=== PATIENT | female | born 1990 | race Native Hawaiian/Other Pacific Islander ===

== ENCOUNTER 2017-02-25 07:49 | Inpatient (IN) | payer MEDICAID ==
[2017-02-25] MEDS: Lactated Ringer's 1,000 ML IV SCH (19:00)
[2017-02-25 19:01] VITALS: BMI 35.9
--- NOTE | 2017-02-25 19:14 | OBADHP ---
Datetime: 02/25/2017 19:07 Admit Comment, IP Provider: at 39.3weks her for induction of labor for hep B+.no ctxs, vb, lof, =fm obhx primi pmh hep B + MED PNV ALL PCN PSH DE SOCH den ve /-3 a/p at 39weeks her for induction/hep b + plan admit to l_d npo/ivf labs cervidil cont hortencia and efm heptitis panel gbs prophylaxsis anticipate Dr Cruz aware Pelvic Type - PN: Adequate Extremities - PN: Normal Abdomen - PN: Normal Back - PN: Normal Breast - PN: Not Done Lungs - PN: Normal Heart - PN: Normal Thyroid - PN: Not Done Neurologic - PN: Normal HEENT - PN: Normal General - PN: Normal FHR - Baseline A Provider: 140 Contraction Comments Provider: q1-5 Comments, ACOG Physical Exam: gravid,non tender ext no edema,no calf ten IP Hx Assessment: The History has been Reviewed and is Current Vital Signs Provider: Within Normal Limits IP Chief Complaint: Scheduled induction of labor NICHD Variability Prov Fetus A: Moderate 6-25bpm NICHD Accel Fetus A IP Provider: 15X15 FHR Category Provider Fetus A: Category I Dilatation, Provider: 1 Effacement, Provider: 50 Station, Provider: -3 Genitourinary Exam: Normal DTRs - PN: Normal EGA AdmitDate IP: 39.3 IP Adm Impression: Term, intrauterine ; No Active Labor; Intact Membranes IP Admit Plan: Admit to unit; Initiate labor protocol
[2017-02-25] MEDS ORDERED: Nalbuphine 20 mg/ml Inj (1 ml) IVP PRN (19:15)
--- NOTE | 2017-02-25 19:41 | OBPN ---
Datetime: 02/25/2017 19:39 IP Procedures: Sterile Vag Exam IP Progress Plan: Cervical Ripening Contraction Comments Provider: q1-4 FHR - Baseline A Provider: 130 IP Progress Note Comment: pt was examined at bed side ve /-3 cervidil plsaced r/a/b discusssed NICHD Accel Fetus A IP Provider: 15X15 FHR Category Provider Fetus A: Category I NICHD Variability Prov Fetus A: Moderate 6-25bpm Dilatation, Provider: 1 Effacement, Provider: 50 Station, Provider: -3 Datetime: 02/25/2017 19:07 Vital Signs Provider: Within Normal Limits
[2017-02-25 21:41] LABS: BASO % 0.1 % (0.0-2.0); EOS # 0.1 K/uL (0.0-0.7); EOS % 1.1 % (0.0-4.0); HEMATOCRIT 31.5 % (34.0-47.0); LYMPH # 1.8 K/uL (1.0-4.3); LYMPH % 18.3 % (20.0-40.0); MEAN CELL VOLUME 92.1 fL (81.0-99.0); MEAN CORPUSCULAR HEMOGLOBIN 30.5 pg (27.0-31.0); MEAN CORPUSCULAR HGB CONC 33.1 g/dL (33.0-37.0); MEAN PLATELET VOLUME 8.8 fL (7.2-11.7); MONO # 0.7 K/uL (0.0-0.8); MONO % 7.3 % (0.0-10.0); NRBC % 0.1 % (0.0-2.0); WHITE BLOOD COUNT 9.8 K/uL (4.8-10.8)
[2017-02-25 21:50] LABS: CHLORIDE 102 mmol/L (98-107); POTASSIUM 3.6 mmol/L (3.6-5.2); RBC URINE 1 /hpf (0-3); SODIUM 134 mmol/L (132-148); URINE BILIRUBIN NEGATIVE (NEGATIVE); URINE BLOOD NEGATIVE (NEGATIVE); URINE COLOR Yellow (YELLOW); URINE GLUCOSE (UA) 1+ mg/dL (Normal); URINE KETONE NEGATIVE (NEGATIVE); URINE PROTEIN NEGATIVE (NEGATIVE); URINE UROBILINOGEN NORMAL mg/dL (0.2-1.0); WBC URINE 3 /hpf (0-5)
[2017-02-25 21:51] LABS: URINE LEUKOCYTE ESTERASE NEGATIVE Leu/uL (Negative)
[2017-02-25 21:52] LABS: GFR AFRICAN-AMERICAN > 60
[2017-02-25 21:53] LABS: ALB/GLOB RATIO 0.9 (1.0-2.1); ALKALINE PHOSPHATASE 139 U/L (38-126); ALT/SGPT 31 U/L (9-52); AST/SGOT 28 U/L (14-36); BILIRUBIN,DIRECT 0.3 mg/dL (0.0-0.4); BILIRUBIN,TOTAL 0.3 mg/dL (0.2-1.3); BLOOD UREA NITROGEN 10 mg/dL (7-17); CALCIUM 8.8 mg/dl (8.6-10.4); CARBON DIOXIDE 19 mmol/L (22-30); GLUCOSE,RANDOM 126 mg/dL (65-105); TOTAL PROTEIN 6.2 g/dL (6.3-8.3)
[2017-02-26] MEDS ORDERED: Nalbuphine 20 mg/ml Inj (1 ml) ONE (01:40)
[2017-02-26] MEDS: Lactated Ringer's 1,000 ML IV SCH ×2 (03:30→09:00)
--- NOTE | 2017-02-26 08:13 | OBPN ---
Datetime: 02/26/2017 08:09 IP Progress Impression: Normal progression of labor IP Progress Plan: Continue present management Membranes, Provider: Intact FHR - Baseline A Provider: 150 Gestation - Est Wks by US: 39.4 IP Progress Note Comment: pt seen and examined . pt reportrs mild pain from ctx, dnie slof, vb, +FM VSS Cervdil removed A/P IOL hep b -s/p cervidl -cytotete as per pMd plan of care discused with Dr Anthony ACEVES Accel Fetus A IP Provider: 15X15 FHR Category Provider Fetus A: Category I KETAN Variability Prov Fetus A: Moderate 6-25bpm Dilatation, Provider: 3 Effacement, Provider: 60 Station, Provider: -3
--- NOTE | 2017-02-26 13:27 | OBPN ---
Datetime: 02/26/2017 13:21 IP Progress Impression: Normal progression of labor; Reassuring heart rate IP Informed Consent Obtain: Vaginal Delivery IP Progress Plan: Continue present management; Augmentation Membranes, Provider: Intact Contraction Comments Provider: Q 3 FHR - Baseline A Provider: 140 Gestation - Est Wks by US: 39.4 Presentation-Admit: Vertex IP Progress Note Comment: IUP at 39+wks Reassuring Tracing Plan: Augmentation after epidural Vital Signs Provider: Within Normal Limits NICHD Accel Fetus A IP Provider: 15X15 FHR Category Provider Fetus A: Category I NICHD Variability Prov Fetus A: Moderate 6-25bpm Dilatation, Provider: 3 Effacement, Provider: 60 Station, Provider: -3 NICHD Decel Fetus A IP Provider: None (Annotations: Data stored by CPN on behalf of user)
[2017-02-26] MEDS ORDERED: Bupivacaine 0.125%/FentaNYL 200 ML EPI ONE (14:12)
[2017-02-26] MEDS ORDERED: Bupivacaine 0.25% Inj(30mL) ONE (14:13)
[2017-02-26] MEDS ORDERED: Oxytocin 30 UNIT 30 UNITS/500 ML BAG IV SCH (15:00)
[2017-02-26] MEDS ORDERED: Oxytocin 30 UNIT 30 UNITS/500 ML BAG IV ONE (15:39)
[2017-02-27] MEDS ORDERED: Bupivacaine HCl 0.25% PF (10 ml) Inj ONE (03:05)
[2017-02-27] MEDS ORDERED: Sodium Citrate/Citric Acid 15 ml Sol ONE (04:39)
[2017-02-27] MEDS ORDERED: Lidocaine 2% Inj (20ml) ONE (04:40)
[2017-02-27] MEDS ORDERED: Lidocaine 2% MPF (5 ml) Inj ONE ×3 (04:42→06:37)
--- NOTE | 2017-02-27 04:46 | OBPN ---
Datetime: 02/27/2017 04:37 IP Progress Impression: Arrest of dilatation/descent; Reassuring heart rate IP Informed Consent Obtain: Section Delivery IP Procedures: Sterile Vag Exam IP Progress Plan: Deliver- Section Membranes, Provider: Ruptured Amniotic Fluid Color, Provider: Clear FHR - Baseline A Provider: 160 Gestation - Est Wks by US: 39.5 Presentation-Admit: Vertex IP Progress Note Comment: IUP at 39wks in labor No change in cervical dilatation despite adequate contractions for More than 8 hours Arrest of cervical dilatation at 4cm. Plan: Deliver by section. Discussed with patient. Pt agrees with plan. Consent obtained. Vital Signs Provider: Reviewed NICHD Accel Fetus A IP Provider: 15X15 FHR Category Provider Fetus A: Category II NICHD Variability Prov Fetus A: Moderate 6-25bpm Dilatation, Provider: 4 Effacement, Provider: 70 Station, Provider: -2 NICHD Decel Fetus A IP Provider: None
[2017-02-27] MEDS ORDERED: Sodium Citrate/Citric Acid 15 ml Sol PO ONE (04:47)
[2017-02-27] MEDS ORDERED: Oxytocin 20 units in LR 2,000 ML IV ONE (04:50)
--- NOTE | 2017-02-27 04:59 | PCM.SURG1 ---
Surgeon's Initial Post Op Note - Surgeon's Notes Surgeon: Dr Cruz Avionics Supervisor: Dr Gardiner Type of Anesthesia: Spinal Anesthesia Administered By: Dr Millan Pre-Operative Diagnosis: IUP at 39+ wks in labor, Arrest of Cervical Dilatation at 4 cm Operative Findings: Live male baby with BW of 2695gms, scores of 9 and 9. Normal Uterus, tubes and ovaries. IVFluids- 1500mls. EBL- 600mls. Urine Output- 250mls Post-Operative Diagnosis: Arrest of Cervical dilatation due to direct occipito- posterior positioning of head. Operation Performed: Primary Low Transverse Section Specimen/Specimens Removed: Umbilical cord blood Estimated Blood Loss: EBL {In ML}: 600 Post-Op Condition: Good Date of Surgery/Procedure: 02/27/17 Time of Surgery/Procedure: 06:52
[2017-02-27] MEDS ORDERED: Morphine 1 mg/ml preservative-free Inj(Duramorph) ONE (05:32)
[2017-02-27] MEDS ORDERED: Midazolam 2 MG/2 ML VIAL ONE (05:57)
[2017-02-27] MEDS ORDERED: Ketamine 50 mg/ml Inj (10 ml) ONE (05:57)
--- NOTE | 2017-02-27 06:31 | OBDS ---
DELIVERY PERSONNEL Delivery Doctor: Erica Cruz MD Scrub Nurse: Ramon Goncalves [employer] Range Feeder: Estella Dyson RN Anesthesiologist: MATERNAL INFORMATION Delivery Anesthesia: Epidural Medications in Delivery: Pitocin Placenta Cultured: No Maternal Complications: None Provider Comments: Uncomplicated primary low transverse section with delivery of a viable m sung with BW of [id number] score of 9 and 9. LABOR SUMMARY EDC: 03/01/2017 00:00 No. Babies in Womb: 1 Labor Anesthesia: Epidural LABOR INFORMATION Reason for Induction: Not Applicable Cervical Ripening Agents: Cytotec @ Oxytocin: Augmentation Group B Beta Strep: Positive Antibiotics # of Doses: 5 Antibiotics Time of Last Dose: 0405 Steroids Given: None Reason Steroids Not Administered: Not Applicable MEMBRANES Membranes Rupture Method: Artificial Rupture of Membranes: 02/26/2017 23:24 Amniotic Fluid Color: Bloody Amniotic Fluid Amount: Small Amniotic Fluid Odor: Normal VAGINAL DELIVERY Episiotomy: None Laceration Extension: N/A Laceration Type: None CSECTION DELIVERY Primary Indication: Arrest Dilatation CSection Urgency: Elective CSection Incidence: Primary Labor: Labor Elective: Elective CSection Incision: Lower Uterine Transverse Uterine Closure: Double-layer closure BABY A INFORMATION Delivery Date/Time: 02/27/2017 05:40 Method of Delivery: Born in Route : No : N/A Forceps: N/A Vacuum Extraction: N/A Shoulder Dystocia : No SHOULDER DYSTOCIA BABY A Delivery Date/Time: 02/27/2017 05:40 PRESENTATION/POSITION BABY A Presentation: Cephalic Cephalic Presentation: Vertex Breech Presentation: N/A PLACENTA INFORMATION BABY A Placenta Delivery Time : 02/27/2017 05:42 Placenta Method of Delivery: Manual Removal Placenta Status: Delivered SCORES BABY A Heart Rate 1 min: >100 bpm Resp Effort 1 min: Good Cry Reflex Irritability 1 min: Cough or Sneeze or Pulls Away Muscle Tone 1 min: Active Motion Color 1 min: Body [place], Extremities Blue Heart Rate 5 min: >100 bpm Resp Effort 5 min: Good Cry Reflex Irritability 5 min: Cough or Sneeze or Pulls Away Muscle Tone 5 min: Active Motion Color 5 min: Body [place], Extremities Blue INFANT INFORMATION BABY A Gestational Age at Delivery: 39.5 Gestational Status: Term Infant Outcome : Liveborn Condition : Stable Sex: Male IDENTIFICATION/MEDS BABY A ID Band Number: [id number] ID Band Location: Left Leg; Left Arm Sensor Applied: Yes Sensor Number: [id number] Sensor Location : Cord Clamp WEIGHT/LENGTH BABY A Birthweight (gms): 2695 Length Inches: 18.50 CORD INFORMATION BABY A No. Cord Vessels: 3 Nuchal Cord : N/A Cord Blood Taken: No Infant Suction: Mouth; Nose ASSESSMENT BABY A Complications: None Physical Findings at Delivery: Within Normal Limits Respirations: Appears Normal Houseman/ALS Called : No Care By: /Kusum De Los Santos RN Transferred To: Remains with Mother
[2017-02-27] MEDS: Simethicone 80 mg Chewtab PO SCH ×4 (10:56→23:08)
[2017-02-27] MEDS: Lactated Ringer's 1,000 ML IV SCH (11:11)
--- NOTE | 2017-02-27 18:45 | OP ---
PROCEDURE DATE: 02/27/2017 PREOPERATIVE DIAGNOSIS: Intrauterine at 39 weeks, in labor, with arrest of cervical dilatation at 4 cm. POSTOPERATIVE DIAGNOSIS: Arrest of cervical dilatation due to the direct occipitoposterior positioning. PROCEDURE: Primary lower transverse section. SURGEON: Dr. Gerry Cruz. SUPERVISOR GRIPS: Dr. Gardiner. Assistance to this procedure was needed for exposure of tissues and help in the delivery of the baby. The assistant press operator remained with the surgery throughout its entire length. TYPE OF ANESTHESIA: Spinal. ANESTHESIA ADMINISTERED BY: Dr. Millan. FINDINGS: A live male with weight of 2695 g. scores of 9 in the first and fifth minutes respectively. The uterus as well as bilateral fallopian tubes and ovaries were normal. The baby was delivered in direct occipitoposterior positioning. Fundal placenta, clear amniotic fluid. IV FLUID INTAKE: 1500 mL ESTIMATED BLOOD LOSS: 600 mL URINE OUTPUT: 250 mL of clear urine. COMPLICATIONS: There were no complications. DESCRIPTION OF PROCEDURE: After obtaining informed consent, the patient was sent to the OR with IV running and Muniz catheter in place. The patient was placed in a supine position on the OR table, and after topping up the epidural anesthesia, which was already in place, the patient was prepped and draped in the usual sterile fashion. A Pfannenstiel skin incision was made about 2.5 cm from the pubic symphysis and this was carried through the subcutaneous layer, so the rectus fascia was identified. Using a Bovie device, a transverse incision was made in a mid portion of the rectus fascia and this was extended to both sides by means of sharp dissection with Cedeño scissors. The rectus fascia was lifted off from the underlying rectus muscles, both superiorly and inferiorly by means of a sharp dissection and blunt dissection. The rectus muscles were in the midline to expose the peritoneum which was tented between 2 Renetta clamps and sharply entered with Metzenbaum scissors. Once the abdominal cavity was entered, the vesicouterine fold of peritoneum was identified, incised in a transverse fashion, was retracted inferiorly to expose the lower uterine segment. A lower transverse incision was made with the scalpel. The incision was extended through the myometrial layer, so the amniotic membranes were identified. The amniotic membranes were ruptured with a pickup forceps and the baby which was located in the direct occipitoposterior positioning was delivered. Baby cried immediately after , after suctioning the nostrils and mouth. The 3-vessel umbilical cord was clamped and cut and the baby was given to the nurse. Umbilical cord blood was obtained and the placenta was manually removed from the uterine cavity. The uterus was then brought out of the abdominal cavity. The uterine cavity was cleaned of all debris using a dry laparotomy pad. The uterine incision was closed in 2 layers using Vicryl #0. The first layer in a running locked fashion and the second layer in a running fashion imbricating the first layer. This was conducted until complete hemostasis was achieved. The pelvis was then irrigated with warm normal saline. Once hemostasis has been assured, attention was turned onto the anterior abdominal wall, which was closed in layers with 2-0 Vicryl for the peritoneum and the rectus muscles. The rectus fascia was re-approximated using Vicryl #0. The subcutaneous tissues were brought together using #2-0 plain. The skin was closed in the subcuticular fashion using #4-0 Biosyn. All counts of instruments, laparotomy pads and needles used were correct x3, and the patient was sent to the recovery room awake and in stable condition. Gerry Cruz MD ANA MARÍA
[2017-02-27] MEDS: Oxycodone/Acetaminophen 5/325 mg Tab PO PRN (21:12)
[2017-02-28] MEDS: Oxycodone/Acetaminophen 5/325 mg Tab PO PRN ×3 (02:16→17:01)
[2017-02-28 08:05] LABS: BASO % 0.1 % (0.0-2.0); EOS % 0.3 % (0.0-4.0); HEMATOCRIT 25.8 % (34.0-47.0); LYMPH % 9.4 % (20.0-40.0); MEAN CELL VOLUME 91.7 fL (81.0-99.0); MEAN CORPUSCULAR HEMOGLOBIN 30.9 pg (27.0-31.0); MEAN CORPUSCULAR HGB CONC 33.7 g/dL (33.0-37.0); MEAN PLATELET VOLUME 8.4 fL (7.2-11.7); MONO # 0.6 K/uL (0.0-0.8); MONO % 5.5 % (0.0-10.0); PLATELET COUNT 148 K/uL (130-400); RED CELL DISTRIBUTION WIDTH 14.6 % (11.5-14.5); WHITE BLOOD COUNT 10.6 K/uL (4.8-10.8)
[2017-02-28] MEDS ORDERED: Gentamicin 80 mg/2mL Inj. ONE (09:13)
[2017-02-28] MEDS: Simethicone 80 mg Chewtab PO SCH ×4 (09:19→22:35)
--- NOTE | 2017-02-28 10:15 | OBPPN ---
Datetime: 02/28/2017 10:11 PP Pain Prov: Within normal limits PP Nausea Prov: Denies PP Flatus Prov: Yes PP BM Prov: No PP Breasts Prov: Normal PP Heart Prov: Normal PP Lungs Prov: Normal PP Abdomen/Uterus Prov: Normal PP Lochia Prov: Normal PP Vulva/Perineum Prov: Normal PP CVA Tenderness Prov: Normal PP Extremities Prov: Normal PP C/S Incision Prov: Normal PP Progress Prov: Normal PP Impression Prov: Normal progression PP Plan Prov: Continue present management PP Progress Note Prov: Pt seen and examined and reports pain is controlled with medication. Pt repor ts ambuating, voiding, passing flatus, no BM. Pt denies any fever, chills, nausea, vomiting, CP, SOB. lightheadness, dizzyness. Pt is breast and bottle feeding and denies any feelings of sadness or depr ession. Pt tolerating diet VSS PE: GEN: NAD, AAO x 3 BREAST: NT, Non engorged b/l RES: CTAB/l CVS: RRR, +S1/S2 ABD: soft, NT/ND, +BS. No guarding, no reboudn tenderness, no rigidity FUNDUS: Firm, at level of umbiliucs INCISCION C/D/I healing well VE: Minimal lochia, non fouls smelling EXT: no calf tenderness, negative master's sign A/P s/p PLTCS POD #1 doing well -pain managment -d/c george -advance diet as tolerated -encourage ambuation with assistance as needed -am labs -cont current managment plan as per pmd Vital Signs Provider PP: Reviewed; Within Normal Limits
[2017-02-28 12:36] LABS: NEUTROPHIL 80 % (50-75); TOTAL CELLS COUNTED 100
[2017-02-28 12:39] LABS: LARGE PLATELETS PRESENT
--- NOTE | 2017-03-01 08:12 | RAD ---
HISTORY: fever sp COMPARISON: No prior. FINDINGS: LUNGS: No active pulmonary disease. PLEURA: No significant pleural effusion identified, no pneumothorax apparent. CARDIOVASCULAR: Cardiac silhouette appears mildly prominent. There is no pulmonary vascular derangement appreciated. OSSEOUS STRUCTURES: No significant abnormalities. VISUALIZED UPPER ABDOMEN: Normal. OTHER FINDINGS: None. IMPRESSION: No acute infiltrate or pleural effusion identified bilaterally. Prominent cardiac silhouette is noted without pulmonary vascular derangement at this time.
[2017-03-01] MEDS: Simethicone 80 mg Chewtab PO SCH ×4 (10:36→22:03)
[2017-03-02 08:42] VITALS: O2SAT 98
[2017-03-02 08:43] LABS: BASO % 0.1 % (0.0-2.0); EOS # 0.2 K/uL (0.0-0.7); EOS % 1.9 % (0.0-4.0); HEMATOCRIT 24.2 % (34.0-47.0); LYMPH # 1.1 K/uL (1.0-4.3); LYMPH % 11.5 % (20.0-40.0); MEAN CELL VOLUME 91.2 fL (81.0-99.0); MEAN CORPUSCULAR HEMOGLOBIN 30.8 pg (27.0-31.0); MEAN CORPUSCULAR HGB CONC 33.8 g/dL (33.0-37.0); MONO # 0.8 K/uL (0.0-0.8); MONO % 8.4 % (0.0-10.0); RED CELL DISTRIBUTION WIDTH 14.8 % (11.5-14.5); WHITE BLOOD COUNT 9.6 K/uL (4.8-10.8)
[2017-03-02 08:56] LABS: ALB/GLOB RATIO 0.7 (1.0-2.1); ALKALINE PHOSPHATASE 92 U/L (38-126); ALT/SGPT 51 U/L (9-52); AST/SGOT 47 U/L (14-36); BILIRUBIN,TOTAL 0.2 mg/dL (0.2-1.3); BLOOD UREA NITROGEN 7 mg/dL (7-17); CALCIUM 7.5 mg/dl (8.6-10.4); CARBON DIOXIDE 21 mmol/L (22-30); CHLORIDE 105 mmol/L (98-107); GFR AFRICAN-AMERICAN > 60; GLUCOSE,RANDOM 91 mg/dL (65-105); POTASSIUM 3.7 mmol/L (3.6-5.2); SODIUM 136 mmol/L (132-148); TOTAL PROTEIN 5.3 g/dL (6.3-8.3)
[2017-03-02] MEDS: Simethicone 80 mg Chewtab PO SCH ×4 (10:03→21:54)
--- NOTE | 2017-03-02 11:20 | OBPPN ---
Datetime: 03/02/2017 10:55 PP Pain Prov: Within normal limits PP Nausea Prov: Denies PP Flatus Prov: Yes PP BM Prov: Yes PP Breasts Prov: Abnormal PP Heart Prov: Normal PP Lungs Prov: Normal PP Abdomen/Uterus Prov: Normal PP Lochia Prov: Normal PP Vulva/Perineum Prov: Normal PP CVA Tenderness Prov: Normal PP Extremities Prov: Normal PP C/S Incision Prov: Normal PP Progress Prov: Normal PP Comments Phys Exam Prov: Breasts: engorged Abdomen: (+) BS. Soft; non distended. Fundus firm, minimally tender, 1 FB below umbilicus. Incisio n with subcuticular closure - clean, dry and intact; slighty edematous inferiorly. Mild lochia rubra . Extremities: no calf tenderness; no clubbing, cyanosis or edemia All other systems reviewed and are negative PP Impression Prov: Endometritis; Increased temperature PP Plan Prov: Continue present management; Antibiotic therapy PP Progress Note Prov: Asked by Dr. Cruz to evaluate patient - post /post operative fever Patient received in bed, room 460, at approximately 0845 hours. Denies nausea, vomiting; occ mild headaches. Denies lightheadedness, dizziness. (+) flatus; (+) BM. Ambulating and voiding without dif ficulty. P.E.: as above. WD in NAD. Awake, alert, oriented to time, person and place. Pleasant and cooera tive. FOB present - labs today: H/H 8.2/24.2; WBC 9.6. Comp panel - wnl Assessment: POD#3, 26 y.o. P1, S/P primary LTCS - failed DHAVAL. Post op fever POD#1, started on gen t/clinda. Temperatures reviewed; T max today noted. Would have discontinued current antibiotics and switched to Zosyn - however, patient has penicillin allergy with reaction = "I can't breathe". Breast engorgement also noted; may be a contributing factor. Chronic anemia - stable; asymptomatic and clin ically stable. Patient encouraged to continue ambulation, to pump breasts, to increase p.o. intake o f fluids, including coconut water. Patient is stable. Plan: 1) continue gent/clinda 2) increase iron to TID Vital Signs Provider PP: Reviewed Vital Signs Provider Details PP: T max 101 at 0715 hours 03/02
[2017-03-02 16:29] VITALS: RESP 20
[2017-03-03] MEDS: Simethicone 80 mg Chewtab PO SCH ×2 (10:18→15:01)
[2017-03-03 11:19] VITALS: BP 127/76; PULSE 86; TEMP 98.6
[2017-03-03] MEDS ORDERED: Measles, Mumps, and Rubella 0.5 ML VIAL SC ONE (13:39)
--- NOTE | 2017-03-05 03:49 | OBDCSUM ---
Datetime: 03/03/2017 14:27 Discharge Diagnosis, Provider: Term Delivered Discharge Comment, Provider: S/P Uncomplicated Section, Clinically Stable Discharge Diagnosis Prov Other: S/P Uncomplicated Section, Clinically Stable
--- NOTE | 2017-03-05 03:59 | OBPPN ---
Datetime: 03/03/2017 07:34 PP BM Prov: Yes Datetime: 03/01/2017 10:50 PP Pain Prov: Within normal limits PP Nausea Prov: Denies PP Flatus Prov: Yes PP Breasts Prov: Normal PP Heart Prov: Normal PP Lungs Prov: Normal PP Abdomen/Uterus Prov: Normal PP Extremities Prov: Normal PP C/S Incision Prov: Normal PP Progress Prov: Normal PP Comments Phys Exam Prov: Abd: Soft, NT, BS- present Incision: Clean and dry PP Impression Prov: Normal progression PP Plan Prov: Continue present management PP Progress Note Prov: S/P Section, POD #2 Clinically Stable Vital Signs Provider PP: Reviewed
--- NOTE | 2017-03-05 04:13 | OBADHP ---
Datetime: 02/27/2017 04:37 FHR - Baseline A Provider: 160 Amniotic Fluid Color, Provider: Clear Membranes, Provider: Ruptured NICHD Variability Prov Fetus A: Moderate 6-25bpm NICHD Accel Fetus A IP Provider: 15X15 FHR Category Provider Fetus A: Category II NICHD Decel Fetus A IP Provider: None Dilatation, Provider: 4 Effacement, Provider: 70 Station, Provider: -2 Datetime: 02/26/2017 13:21 Contraction Comments Provider: Q 3 Datetime: 02/25/2017 19:39 Admit Comment, IP Provider: IUP at 39.5wks reporting for induction of labor. Reaasuring Heart Rate tracing Plan: Admit to L and D. Cervidil for cervical ripening Monitor progress of labor. Pelvic Type - PN: Adequate Extremities - PN: Normal Abdomen - PN: Normal Back - PN: Normal Breast - PN: Normal Lungs - PN: Normal Heart - PN: Normal Thyroid - PN: Normal Neurologic - PN: Normal HEENT - PN: Normal General - PN: Normal Presentation-Admit: Vertex Gestation - Est Wks by US: 39.5 Vital Signs Provider: Reviewed IP Chief Complaint: Scheduled induction of labor Genitourinary Exam: Normal DTRs - PN: Normal EGA AdmitDate IP: 39.3 IP Adm Impression: Term, intrauterine IP Admit Plan: Admit to unit; Initiate labor induction protocol
== END 2017-03-03 16:45 | disposition home or self-care (01) | DRG 371 ==
LOC: C.4D 18:42 → C.4M 02-27 10:38
PROVIDERS: ADMIT Obstetrics & Gynecology; ATTEND Obstetrics & Gynecology
PROC: 10D00Z1 Extraction of Products of Conception, Low, Open Approach (ICD-10-PCS; principal; 2017-02-27)
DX: O99.824 Streptococcus B carrier state complicating childbirth (principal); O99.02 Anemia complicating childbirth; O66.9 Obstructed labor, unspecified; O86.4 Pyrexia of unknown origin following delivery; Z3A.39 39 weeks gestation of pregnancy; Z37.0 Single live birth